=== PATIENT | female | born 1990 | race Caucasian/White ===

== ENCOUNTER 2016-10-22 08:00 | Inpatient (IN) ==
[2016-10-22] MEDS ORDERED: Ondansetron 4 MG/2 ML VIAL IVP PRN (08:18)
[2016-10-22] MEDS ORDERED: Naloxone 0.4 MG/ML INJ IVP PRN (08:18)
[2016-10-22] MEDS ORDERED: Famotidine 20 MG/2 ML VIAL IVP PRN (08:18)
[2016-10-22] MEDS ORDERED: *HR* Nalbuphine 20 MG/ML AMPUL IVP PRN (08:22)
[2016-10-22] MEDS ORDERED: miSOPROStol 25 MCG TABLET VG PRN (08:22)
--- NOTE | 2016-10-22 08:26 | OB/GYN History & Physical ---
Date of Encounter: 10/22/16 Time of Encounter: 08:20 Assessment and Plan (1) and not yet delivered in third trimester Current visit: Yes Status: Acute (2) 39 weeks gestation of Current visit: Yes Status: Acute (3) Elective induction of labor planned Current visit: Yes Status: Acute Will induce patient with Cytotec and a Stratton catheter planus dentist for a vaginal delivery History of Present Illness HPI: Ms. Deleon is a 26 year old female 3 para 2001 at 39-0/7 weeks who presented for induction of labor secondary to with favorable cervix. Patient had non-complicated course has been having occasional contractions but tolerable denies any vaginal bleeding or discharge. Patient is O- and GBS negative rubella positive. Past Med Surg Social Fam HX - Past Medical History Source: patient, old records reviewed Obstetrical History - Pregnancies : 3 Para: 2 Term: 2 : 0 Ab's: 0 Livin Review of System OB All systems PM: reviewed and no additional remarkable complaints except as stated Exam - Constitutional Constitutional: well developed, well nourished, no acute distress, average body habitus - HEENT HEENT: PERRL - Neck Neck exam: full ROM - Lungs Respiratory exam: CTAB - Cardiovascular Cardiovascular exam: RRR - Vagina Vagina: Present: normal moisture - Cervix Dilation: 2 Effacement: 80 Station: -2 - Comments Comments: Stratton catheter placed with 30 mL balloon inflated Results Result Diagrams: 10/22/16 09:07 All other labs normal. - VTE Reasons for not Prescribing Prophylaxis: Treatment not Indicated - Low risk for VTE
[2016-10-22] MEDS ORDERED: Ringers Solution, Lactated 1,000 ML IVC SCH (08:30)
[2016-10-22 09:15] LABS: Hematocrit 33.3 % (35.3-44.9); Hemoglobin 11.3 g/dL (11.5-15.4); Immature Granulocytes % 0.4 % (0-4); Lymphocytes % 18.7 %; Mean Corpuscular HGB Conc 33.9 g/dL (31.6-35.5); Mean Corpuscular Volume 85.6 fL (83.0-100.0); Mean Platelet Volume 10.9 fL (9.4-12.4); Platelet Count 166 K/mcL (140-400); Red Blood Count 3.89 M/mcL (3.82-4.97); Red Cell Distribution Width 13.6 % (11.5-14.5); Segmented Neutrophils % 71.5 %
[2016-10-22 09:16] LABS: Basophils % 0.3 %; Eosinophils # 0.1 K/mcL (0.0-0.6); Eosinophils % 1.6 %; Lymphocytes # 1.3 K/mcL (0.6-4.6); Monocytes # 0.5 K/mcL (0.0-1.3); Monocytes % 7.5 %; Neutrophils # 4.9 K/mcL (1.6-8.9)
--- NOTE | 2016-10-22 12:53 | OB Labor Progress Note ---
Date of Encounter: 10/22/16 Time of Encounter: 12:50 Labor Progress Note - Subjective Subjective: Patient's catheter is out tolerating contractions well at this time. Still not wanting an epidural - Cervix Cervix: 380/-2 AROM clear fluid small amt - Heart Tones Heart Tones: heart tones 140s reactive - [place]: Contractions every 2 minutes - Plan Plan: Anticipate normal spontaneous vaginal delivery
[2016-10-22] MEDS ORDERED: Oxytocin 20 units/ LR 1000 mL 20 UNIT/1,000 ML BAG IVC ONE ×2 (16:05→18:45)
[2016-10-22] MEDS ORDERED: Lidocaine 1% 20 ML MDV ONE (16:07)
--- NOTE | 2016-10-22 17:02 | OB/GYN Procedure Note ---
Delivery - Delivery Date: 10/22/16 Provider: Adilson Vann Intrapartum events: none Delivery induction: woodward, misoprostol Delivery augmentation: rupture of membranes Delivery monitor: external FHT, external uterine Anesthesia: local Estimated Blood Loss: 200 - Infant (s) A Delivery Date: 10/22/16 Delivery Time: 16:35 Presentation: vertex Position: JOSE Route of delivery: Gender: Male Viability: Viable Pounds: 8 Ounces: 11 Weight Gram: 3.93 kg at 1 minute: 8 at 5 mins: 9 Shoulder Dystocia: not encountered Specimens collected: cord blood Placenta: spontaneous Cord: 3 umbilical vessels - Repair Episiotomy: none Laceration Description: Perineal - 1st Degree - Complications Delivery complications: none Delivery comments: Patient is a 26-year-old 3 para 2 at 39-0/7 weeks who presented for induction of labor secondary with favorable cervix. Patient was admitted for catheter and Cytotec was placed in the catheter fell out a couple hours later. Patient was artificially ruptured clear fluid and progressed to complete without any additional augmentation. Patient became complete pushed twice delivering a viable male in left occiput anterior presentation at 1635. There was no nuchal cord, no meconium, infant was bulb suctioned on the abdomen, Apgars were 8 at 1 minute, 9 at 5 minutes, infant weight was 8 lbs. 11 oz. 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 Patient was noted to have a first-degree perineal laceration repaired with 3-0 Vicryl in usual fashion. Cervix vagina was visualized intact. Patient will be observed 2 hours before being taken floor. - Disposition Mom disposition: stable in LDR disposition: stable in LDR
[2016-10-22] MEDS ORDERED: Rho Immune Globulin 1,500 UNIT SYRINGE IM PRN (20:22)
[2016-10-22] MEDS ORDERED: Ibuprofen 600 MG TABLET PO PRN (20:22)
[2016-10-22] MEDS ORDERED: Measles/Mumps/Rubella Vacc 0.5 ML VIAL SQ PRN (20:22)
[2016-10-22] MEDS ORDERED: *HR* HYDROcodone/Acet 5/325 mg TABLET PO PRN (20:22)
[2016-10-22] MEDS ORDERED: Oxytocin 20 units/ LR 1000 mL 20 UNIT/1,000 ML BAG IVC SCH (20:22)
[2016-10-22] MEDS ORDERED: Acetaminophen 325 MG TABLET PO PRN (20:22)
[2016-10-23 05:53] LABS: Basophils % 0.3 %; Eosinophils # 0.1 K/mcL (0.0-0.6); Eosinophils % 0.9 %; Hematocrit 31.6 % (35.3-44.9); Hemoglobin 10.5 g/dL (11.5-15.4); Immature Granulocytes % 0.5 % (0-4); Lymphocytes # 2.4 K/mcL (0.6-4.6); Mean Corpuscular HGB Conc 33.2 g/dL (31.6-35.5); Mean Corpuscular Hemoglobin 29.3 pg (28.0-33.3); Mean Corpuscular Volume 88.3 fL (83.0-100.0); Mean Platelet Volume 10.9 fL (9.4-12.4); Monocytes % 10.1 %; Neutrophils # 6.3 K/mcL (1.6-8.9); Platelet Count 159 K/mcL (140-400); Red Blood Count 3.58 M/mcL (3.82-4.97); Red Cell Distribution Width 13.7 % (11.5-14.5); Segmented Neutrophils % 64.2 %
[2016-10-23] MEDS ORDERED: Lactobacillus 1 EACH CAP.SPRINK PO SCH (09:00)
[2016-10-23] MEDS ORDERED: Prenatal Vit/FA 1 EACH TABLET PO SCH ×2 (09:00)
[2016-10-23] MEDS ORDERED: Famotidine 20 MG TABLET PO SCH (09:00)
[2016-10-23] MEDS ORDERED: Loratadine 10 MG TABLET PO SCH (09:00)
--- NOTE | 2016-10-23 09:29 | Discharge Summary ---
Date of Encounter: 10/23/16 Time of Encounter: 09:20 - Discharge Diagnosis (1) Mother currently breast-feeding Priority: Secondary Status: Acute (2) Vaginal delivery Priority: Primary Status: Acute Comments: Pt meeting all milestones and desires discharge this evening if baby is discharged. - Discharge Medications Prescriptions: Ibuprofen [Motrin] 600 mg PO Q6HR PRN #60 tab PRN Reason: Cramping Docusate [Colace] 100 mg PO BID #60 Home Medications: Acidophilus 100 mg PO DAILY 10/22/16 [History] Zantac 150 mg PO DAILY 10/22/16 [History] Zyrtec 10 mg PO DAILY 10/22/16 [History] Docusate [Colace] 100 mg PO BID #60 10/23/16 [Rx] Ibuprofen [Motrin] 600 mg PO Q6HR PRN #60 tab 10/23/16 [Rx] Vit/FA 1 each PO DAILY tab 10/23/16 [Rx] Allergies/Adverse Reactions: Allergies No Known Allergies Allergy (Verified 10/22/16 09:47) Data Procedures and tests throughout hospitalization: Laboratory Tests 10/22/16 10/22/16 10/23/16 09:07 17:04 05:23 WBC 6.9 9.9 RBC 3.89 3.58 L Hgb 11.3 L 10.5 L Hct 33.3 L 31.6 L MCV 85.6 88.3 MCH 29.0 29.3 MCHC 33.9 33.2 RDW 13.6 13.7 Plt Count 166 159 MPV 10.9 10.9 Immature Gran % 0.4 0.5 Seg Neutrophils % 71.5 64.2 Lymphocytes % 18.7 24.0 Monocytes % 7.5 10.1 Eosinophils % 1.6 0.9 Basophils % 0.3 0.3 Neutrophils # 4.9 6.3 Lymphocytes # 1.3 2.4 Monocytes # 0.5 1.0 Eosinophils # 0.1 0.1 Basophils # 0.0 0.0 Screen NEGATIVE Baby's Blood Type O RH POSITIVE Mother's Blood Type O RH NEGATIVE Rhogam Indicated YES Rhogam Req for Mother 1 Labs on day of discharge: Labs from last 24 hours 10/23/16 10/22/16 10/22/16 05:23 17:04 09:07 WBC 9.9 6.9 RBC 3.58 L 3.89 Hgb 10.5 L 11.3 L Hct 31.6 L 33.3 L MCV 88.3 85.6 MCH 29.3 29.0 MCHC 33.2 33.9 RDW 13.7 13.6 Plt Count 159 166 MPV 10.9 10.9 Immature Gran % 0.5 0.4 Seg Neutrophils % 64.2 71.5 Lymphocytes % 24.0 18.7 Monocytes % 10.1 7.5 Eosinophils % 0.9 1.6 Basophils % 0.3 0.3 Neutrophils # 6.3 4.9 Lymphocytes # 2.4 1.3 Monocytes # 1.0 0.5 Eosinophils # 0.1 0.1 Basophils # 0.0 0.0 Screen NEGATIVE Baby's Blood Type O RH POSITIVE Mother's Blood Type O RH NEGATIVE Rhogam Indicated YES Rhogam Req for Mother 1 Date of admission: 10/22/16 08:05 Primary care physician: Temi Saunders CNP Consults: 10/22/16 20:22 Consult to Lumber Planer [CONS] Routine Comment: Vaginal delivery, consult needed Discharging clinician: Radha Hollingsworth Anticipated date of discharge: 10/23/16 - Patient Status Disposition: Home, Self-Care Condition: Good Functional capacity at discharge: independent ambulation Overall status at discharge: patient is progressing back to baseline - Discharge Instructions Follow Up With: Temi Saunders CNP [Primary Care Provider] - Adilson Vann DO [Partnered Physician] - - Diet and Activity Activity: increase activity as tolerated Diet: regular diet Hospital Course Reason for admission: induction of labor Delivery: Episiotomy: none Laceration: 1st degree Other procedures: none complications: none Discharge diagnosis: IUP at term delivered [place] baby: male Hospital course: - Delivery Date: 10/22/16 Provider: Adilson Vann Intrapartum events: none Delivery induction: woodward, misoprostol Delivery augmentation: rupture of membranes Delivery monitor: external FHT, external uterine Anesthesia: local Estimated Blood Loss: 200 - Infant (s) Infant A Infant Delivery Date: 10/22/16 Delivery Time: 16:35 Presentation: vertex Position: JOSE Route of delivery: Gender: Male Viability: Viable Pounds: 8 Ounces: 11 Weight Gram: 3.93 kg at 1 minute: 8 at 5 mins: 9 Shoulder Dystocia: not encountered Specimens collected: cord blood Placenta: spontaneous Cord: 3 umbilical vessels - Repair Episiotomy: none Laceration Description: Perineal - 1st Degree - Complications Delivery complications: none - Disposition Mom disposition: home PPD#1 disposition: home with mother, Time Attestation: Total time spent providing and/or coordinating discharge services: Time Spent: Less than 30 minutes Exam - Constitutional Vitals: Temp Pulse Resp BP Pulse Ox 97.8 F 81 16 132/90 99 10/23/16 08:00 10/23/16 08:00 10/23/16 08:00 10/23/16 08:00 10/23/16 08:00 General appearance IM: A&O X 3 - Respiratory Respiratory exam: Present: CTAB - Cardiovascular Cardiovascular exam IM: Present: RRR - Rectal Rectal exam: deferred - Uterine Tone: Firm Uterus Position: At Umbilicus - Extremities Exam Extremities exam IM: Present: normal inspection - Neurological Exam Neurological exam: normal gait, oriented X3 - Psychiatric Additional comments: reports good mood
[2016-10-23 17:28] VITALS: BP 130/80
== END 2016-10-23 17:49 | disposition home or self-care (01) | DRG 560 ==
LOC: 1NENULAB 08:05 → 1NENUOBS 20:08
PROVIDERS: ADMIT Obstetrics & Gynecology; ATTEND Obstetrics & Gynecology

== ENCOUNTER 2018-06-13 05:59 | Inpatient (IN) ==
[2018-06-13] MEDS ORDERED: Ringers Solution, Lactated 1,000 ML ONE (06:15)
[2018-06-13] MEDS ORDERED: Metoclopramide 10 MG/2 ML VIAL IVP PRN (06:16)
[2018-06-13] MEDS ORDERED: Naloxone 0.4 MG/ML INJ IVP PRN (06:16)
[2018-06-13] MEDS ORDERED: Famotidine 20 MG/2 ML VIAL IVP PRN (06:16)
[2018-06-13] MEDS ORDERED: miSOPROStol 25 MCG TABLET VG PRN (06:16)
[2018-06-13] MEDS ORDERED: Lidocaine 1% 20 ML MDV INFILT PRN (06:16)
[2018-06-13] MEDS ORDERED: Ondansetron 4 MG/2 ML VIAL IVP PRN (06:16)
[2018-06-13] MEDS ORDERED: *HR* Nalbuphine 10 MG/ML AMPUL IVP PRN (06:16)
[2018-06-13] MEDS ORDERED: Ringers Solution, Lactated 1,000 ML IVC SCH (06:30)
--- NOTE | 2018-06-13 07:25 | OB/GYN History & Physical ---
Date of Encounter: 06/13/18 Time of Encounter: 07:21 Assessment and Plan (1) 37 weeks gestation of Current visit: Yes Status: Acute (2) Chronic hypertension affecting Current visit: Yes Status: Acute Admit for IOL due to chronic HTN with new onset proteinuria and increasing blood pressures. Plan for cytotec and woodward for IOL. (3) Rh negative state in antepartum period Current visit: Yes Status: Acute History of Present Illness Chief complaint: induction of labor, chronic HTN HPI: Ms. Deleon is a 28 year old female presenting at 37 weeks gestation for IOL due to chronic HTN with new onset proteinuria. She takes labetalol 100mg BID. SHe denies any complaints today. Good FM. O negative Rubella immune Varicella immune Treponema, HIV, Hep B negative GBS negative Past Med Surg Social Fam HX - Past Medical History Medical history: no medical history Psychiatric history: no psych history - Past Surgical History Surgical History: other Additional surgical history: T&A D&C breast reduction - Social History Smoking Status: Never smoker Smokeless Tobacco Status: No Alcohol use: none Drug use: none - Family History Father Adopted: No Family Member Ethnicity: Non- Living Status: Still Living Hx Family Cardiac Disorders: Yes Hx Family Respiratory Disorders: No Hx Family Cancer: No Hx Family GI Disorders: No Hx Family Genitourinary Disorders: No Hx Family Endocrine Disorder: No Hx Family Musculoskeletal Disorders: No Hx Family Neuromuscular Disorders: No Hx Family Neurologic Disorders: No Hx Family HEENT Disorders: No Hx Family Autoimmune Disorders: No Hx Family Reproductive Disorders: No Hx Family Psychosocial Disorders: No Hx Family Medical Disorders: No Obstetrical History - Pregnancies : 5 Para: 3 Term: 3 : 0 Ab's: 1 Livin Medications and Allergies Acidophilus 100 mg PO DAILY 10/22/16 [History] Zyrtec 10 mg PO DAILY 10/22/16 [History] Bentyl 1 / PO DAILY 04/09/17 [History] Doxycycline 100 mg PO BID #14 capsule 04/09/17 [Rx] Ferrous Sulfate 325 / PO DAILY 04/09/17 [History] Ferrous Sulfate 325 mg PO DAILY #30 tablet. 04/09/17 [Rx] Ibuprofen [Motrin] 800 mg PO Q8HR PRN #30 tablet 04/09/17 [Rx] Methylergonovine [Methergine] 0.2 mg PO Q8HR PRN #9 tablet 04/09/17 [Rx] Tablet 1 / PO DAILY 04/09/17 [History] Vit/FA 1 each PO DAILY 04/09/17 [History] Allergy/AdvReac Type Severity Reaction Status Date / Time No Known Allergies Allergy Verified 04/08/17 06:28 Review of System OB All systems PM: reviewed and no additional remarkable complaints except as stated Exam - Constitutional Constitutional: well developed, well nourished, no acute distress - HEENT HEENT: Mucus Membranes Moist - Lungs Respiratory exam: CTAB - Cardiovascular Cardiovascular exam: RRR, +S1, +S2 - Abdomen Abdomen: Present: gravid, non tender - Extremities Extremities exam: normal inspection - Cervix Dilation: 2 (in office) Effacement: 80 Station: -2 - Anus/Rectum Anus/Rectum: Present: normal perianal skin Results All other labs normal. - VTE Reasons for not Prescribing Prophylaxis: Treatment not Indicated - Low risk for VTE
--- NOTE | 2018-06-13 07:55 | OB Labor Progress Note ---
Date of Encounter: 06/13/18 Time of Encounter: 07:53 Labor Progress Note - Subjective Subjective: Patient still doing well feeling occasional contractions is denying headaches blurred vision scotoma. - Cervix Cervix: 2-3/80/-2 Stratton catheter placed with 40cc balloon inflated - Heart Tones Heart Tones: heart tones 140s reactive - [place]: Contractions every 5-7 minutes irregular - Interventions Interventions: Patient will be given Cytotec 25 g vaginally, PIH labs have been obtained, we will anticipate normal spontaneous vaginal delivery
[2018-06-13 08:19] LABS: Amphetamine Screen,Urine Negative ng/mL (Cutoff=1000); Barbiturate Screen,Urine Negative ng/mL (Cutoff=200); Benzodiazepines Screen,Urine Negative ng/mL (Cutoff=200); Cannabinoid Screen,Urine Negative ng/mL (Cutoff = 50); Cocaine Screen,Urine Negative ng/mL (Cutoff= 300); Opiate Screen,Urine Negative ng/mL (Cutoff=300); Phencyclidine Screen,Urine Negative ng/mL (Cutoff=25)
[2018-06-13 08:31] LABS: Basophils % 0.3 %; Eosinophils # 0.1 K/mcL (0.0-0.6); Eosinophils % 1.2 %; Hematocrit 30.6 % (35.3-44.9); Hemoglobin 9.9 g/dL (11.5-15.4); Immature Granulocytes % 0.6 % (0-4); Lymphocytes # 1.8 K/mcL (0.6-4.6); Lymphocytes % 26.7 %; Mean Corpuscular HGB Conc 32.4 g/dL (31.6-35.5); Mean Corpuscular Hemoglobin 27.3 pg (28.0-33.3); Mean Corpuscular Volume 84.3 fL (83.0-100.0); Mean Platelet Volume 11.1 fL (9.4-12.4); Monocytes # 0.6 K/mcL (0.0-1.3); Monocytes % 8.5 %; Neutrophils # 4.2 K/mcL (1.6-8.9); Platelet Count 153 K/mcL (140-400); Red Blood Count 3.63 M/mcL (3.82-4.97); Segmented Neutrophils % 62.7 %
[2018-06-13 08:33] LABS: Alanine Aminotransferase 15 Units/L (7-52); Aspartate Amino Transferase 20 Units/L (13-39); BUN/Creatinine Ratio 10 (6-26); Blood Urea Nitrogen 6 mg/dL (6-20); Lactate Dehydrogenase 133 Units/L (140-271); Uric Acid 6.1 mg/dL (2.3-7.6); eGFR For Non-African Americans > 60 (> 60)
[2018-06-13 08:33] LABS: Protein/Creatinine Ratio,Urine 0.13 mg/mg (0.00-0.20)
--- NOTE | 2018-06-13 12:51 | OB Labor Progress Note ---
Date of Encounter: 06/13/18 Time of Encounter: 12:48 Labor Progress Note - Subjective Subjective: Patient is doing well feeling contractions with a not that uncomfortable at this point. - Cervix Cervix: 5-6/80/-2 AROM clear fluid - Heart Tones Heart Tones: heart tones 140s reactive - [place]: IUPC placed contractions every 2-5 minutes irregular this time. - Interventions Interventions: Continue current care anticipate vaginal delivery
[2018-06-13] MEDS ORDERED: Oxytocin 20 units/ LR 1000 mL 20 UNIT/1,000 ML BAG IVC ONE (13:02)
--- NOTE | 2018-06-13 16:13 | OB/GYN Procedure Note ---
Delivery - Delivery Date: 06/13/18 Provider: Adilson Vann Intrapartum events: none Delivery induction: AROM, woodward, misoprostol Delivery monitor: external FHT, external uterine, internal uterine Anesthesia: none Quantitated Blood Loss: 200 - Infant (s) Infant A Infant Delivery Date: 06/13/18 Infant Delivery Time: 15:23 Presentation: vertex Position: JOSE Gender: Male Viability: Viable Pounds: 8 Ounces: 5 Weight Gram: 3.76 kg at 1 minute: 7 at 5 mins: 8 Shoulder Dystocia: not encountered Specimens collected: cord blood Placenta: spontaneous Cord: nuchal cord (around the body times one), true knot - Repair Episiotomy: none Laceration Description: None - Complications Delivery complications: none - Disposition Mom disposition: stable in LDR [place] disposition: stable in LDR - Comments Comments: Patient is a 28-year-old 5 para 3013 at 37-0/7 weeks who presented for an induction of labor secondary to chronic hypertension on labetalol. Patient has been stable however the last visit her pressures have been elevated and she started becoming symptomatic she is complaining of just not feeling right with occasional headaches and scotomata. Because of patient's worsening CHAPLAIN RESIDENT symptoms was recommended when she had 37 weeks we will go ahead and deliver her she did have a favorable cervix patient was brought to labor and delivery where a Woodward catheter placed along with Cytotec. Woodward catheter fell out approximately 2 hours after insertion approximately 4 hours after the placement of the Cytotec she was checked was noted to be 5-6 cm and she was artificially ruptured. Patient progressed rapidly from this point became anterior lip did not have an epidural wanted to push. Anterior lip was then reduced and patient continued to push and delivered a viable female infant in left occiput anterior presentation at 1523. There was a nuchal cord 1 around the body with a true knot noted in the cord. was bulb suctioned on the abdomen Apgars were 7 at 8 at 5 minutes infant weight was 8 lbs. 5 oz. 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 Perineum cervix and vagina was well visualized intact. Patient will be observed 2 hours before being taken to the floor. All needles and sponge counts were correct 3
[2018-06-13] MEDS ORDERED: Oxytocin 20 units/ LR 1000 mL 20 UNIT/1,000 ML BAG IVC SCH (16:55)
[2018-06-13] MEDS ORDERED: Acetaminophen 325 MG TABLET PO PRN (16:55)
[2018-06-13] MEDS ORDERED: Rho Immune Globulin 1,500 UNIT SYRINGE IM PRN (16:55)
[2018-06-13] MEDS ORDERED: Lanolin 7 G OINT...G. TP PRN (16:55)
[2018-06-13] MEDS: Ibuprofen 600 MG TABLET PO PRN (17:16)
[2018-06-14] MEDS: Ibuprofen 600 MG TABLET PO PRN ×2 (03:51→09:36)
[2018-06-14 08:03] LABS: Basophils % 0.5 %; Eosinophils # 0.1 K/mcL (0.0-0.6); Eosinophils % 1.5 %; Hematocrit 29.6 % (35.3-44.9); Hemoglobin 9.4 g/dL (11.5-15.4); Immature Granulocytes % 0.6 % (0-4); Lymphocytes # 2.3 K/mcL (0.6-4.6); Lymphocytes % 26.6 %; Mean Corpuscular HGB Conc 31.8 g/dL (31.6-35.5); Mean Corpuscular Hemoglobin 27.3 pg (28.0-33.3); Mean Platelet Volume 10.6 fL (9.4-12.4); Monocytes # 0.8 K/mcL (0.0-1.3); Monocytes % 8.9 %; Neutrophils # 5.5 K/mcL (1.6-8.9); Platelet Count 149 K/mcL (140-400); Red Blood Count 3.44 M/mcL (3.82-4.97); Red Cell Distribution Width 14.8 % (11.5-14.5); Segmented Neutrophils % 61.9 %
[2018-06-14 08:05] VITALS: BP 126/83
[2018-06-14] MEDS ORDERED: Prenatal Vit/FA 1 EACH TABLET PO SCH (09:00)
--- NOTE | 2018-06-14 11:58 | Discharge Summary ---
Date of Encounter: 06/14/18 Time of Encounter: 11:57 - Discharge Diagnosis (1) Chronic hypertension affecting Priority: Primary Status: Acute Comments: Will discharge home on labatelol (2) Vaginal delivery Priority: Primary Status: Acute Comments: Stable in PP, meeting all milestones, pain well managed, desires discharge - Discharge Medications Prescriptions: New Ibuprofen [Motrin] 600 mg PO Q6HR PRN #60 tablet PRN Reason: Cramping Docusate [Colace] 100 mg PO BID #30 capsule Lanolin [Lansinoh] 1 appl TP TID PRN oint...g. PRN Reason: Sore Nipples Continue Vit/FA 1 each PO DAILY Cetirizine HCl [All Day Allergy] 1 tab PO HS Omeprazole [PriLOSEC] 1 tab PO DAILY Dicyclomine [Bentyl] 1 tab PO Q6HR PRN PRN Reason: IBS Labetalol [Trandate] 1 tab PO BID #60 tablet Home Medications: Vit/FA 1 each PO DAILY 04/09/17 [History] Cetirizine HCl [All Day Allergy] 1 tab PO HS 06/13/18 [History] Dicyclomine [Bentyl] 1 tab PO Q6HR PRN 06/13/18 [History] Omeprazole [PriLOSEC] 1 tab PO DAILY 06/13/18 [History] Docusate [Colace] 100 mg PO BID #30 capsule 06/14/18 [Rx] Ibuprofen [Motrin] 600 mg PO Q6HR PRN #60 tablet 06/14/18 [Rx] Labetalol [Trandate] 1 tab PO BID #60 tablet 06/14/18 [Rx] Lanolin [Lansinoh] 1 appl TP TID PRN oint...g. 06/14/18 [Rx] Allergies/Adverse Reactions: Allergy/AdvReac Type Severity Reaction Status Date / Time No Known Allergies Allergy Verified 06/13/18 10:52 Data Procedures and tests throughout hospitalization: Laboratory Tests 06/13/18 06/13/18 06/13/18 07:48 07:48 07:48 WBC 6.7 RBC 3.63 L Hgb 9.9 L Hct 30.6 L MCV 84.3 MCH 27.3 L MCHC 32.4 RDW 15.0 H Plt Count 153 MPV 11.1 Immature Gran % 0.6 Seg Neutrophils % 62.7 Lymphocytes % 26.7 Monocytes % 8.5 Eosinophils % 1.2 Basophils % 0.3 Neutrophils # 4.2 Lymphocytes # 1.8 Monocytes # 0.6 Eosinophils # 0.1 Basophils # 0.0 BUN 6 Creatinine 0.59 L Est GFR ( Amer) > 60 Est GFR (Non-Af Amer) > 60 BUN/Creatinine Ratio 10 Uric Acid 6.1 AST 20 ALT 15 Lactate Dehydrogenase 133 L Urine Creatinine Protein/Creatinin Ratio Urine Total Protein Urine Opiates Screen Negative Ur Barbiturates Screen Negative Ur Phencyclidine Scrn Negative Ur Amphetamines Screen Negative U Benzodiazepines Scrn Negative Urine Cocaine Screen Negative U Marijuana (THC) Screen Negative Ur Drug Screen Interp See Below Baby's Blood Type Mother's Blood Type Rhogam Indicated 06/13/18 06/13/18 06/14/18 07:54 15:51 07:41 WBC 8.8 RBC 3.44 L Hgb 9.4 L Hct 29.6 L MCV 86.0 MCH 27.3 L MCHC 31.8 RDW 14.8 H Plt Count 149 MPV 10.6 Immature Gran % 0.6 Seg Neutrophils % 61.9 Lymphocytes % 26.6 Monocytes % 8.9 Eosinophils % 1.5 Basophils % 0.5 Neutrophils # 5.5 Lymphocytes # 2.3 Monocytes # 0.8 Eosinophils # 0.1 Basophils # 0.0 BUN Creatinine Est GFR ( Amer) Est GFR (Non-Af Amer) BUN/Creatinine Ratio Uric Acid AST ALT Lactate Dehydrogenase Urine Creatinine 164 Protein/Creatinin Ratio 0.13 Urine Total Protein 21 H Urine Opiates Screen Ur Barbiturates Screen Ur Phencyclidine Scrn Ur Amphetamines Screen U Benzodiazepines Scrn Urine Cocaine Screen U Marijuana (THC) Screen Ur Drug Screen Interp Baby's Blood Type O RH NEGATIVE Mother's Blood Type O RH NEGATIVE Rhogam Indicated NO Labs on day of discharge: Labs from last 24 hours 06/14/18 06/13/18 07:41 15:51 WBC 8.8 RBC 3.44 L Hgb 9.4 L Hct 29.6 L MCV 86.0 MCH 27.3 L MCHC 31.8 RDW 14.8 H Plt Count 149 MPV 10.6 Immature Gran % 0.6 Seg Neutrophils % 61.9 Lymphocytes % 26.6 Monocytes % 8.9 Eosinophils % 1.5 Basophils % 0.5 Neutrophils # 5.5 Lymphocytes # 2.3 Monocytes # 0.8 Eosinophils # 0.1 Basophils # 0.0 Baby's Blood Type O RH NEGATIVE Mother's Blood Type O RH NEGATIVE Rhogam Indicated NO Date of admission: 06/13/18 05:59 Primary care physician: Kierra Lind Consults: 06/13/18 16:55 Consult to Sorting Cows Worker [CONS] Routine Comment: Vaginal delivery, consult needed Discharging clinician: Sameera Serna Anticipated date of discharge: 06/14/18 - Patient Status Disposition: Home, Self-Care Condition: Good Functional capacity at discharge: independent ambulation Overall status at discharge: patient is progressing back to baseline - Discharge Instructions Follow Up With: Kierra Lind, MANNY [Primary Care Provider] - Adilson Vann DO [Partnered Physician] - - Diet and Activity Activity: resume usual activities as tolerated Diet: regular diet Hospital Course Reason for admission: induction of labor, IUP at term Delivery: Episiotomy: none Other procedures: none complications: none Discharge diagnosis: IUP at term delivered Hospital course: Delivery - Delivery Date: 06/13/18 Provider: Adilson Vann Intrapartum events: none Delivery induction: AROM, woodward, misoprostol Delivery monitor: external FHT, external uterine, internal uterine Anesthesia: none Quantitated Blood Loss: 200 - (s) A Infant Delivery Date: 06/13/18 Infant Delivery Time: 15:23 Presentation: vertex Position: JOSE Gender: Male Viability: Viable Pounds: 8 Ounces: 5 Weight Gram: 3.76 kg at 1 minute: 7 at 5 mins: 8 Shoulder Dystocia: not encountered Specimens collected: cord blood Placenta: spontaneous Cord: nuchal cord (around the body times one), true knot - Repair Episiotomy: none Laceration Description: None - Complications Delivery complications: none - Disposition Mom disposition: stable in PP and appropriate for discharge Time Attestation: Total time spent providing and/or coordinating discharge services: Time Spent: Less than 30 minutes Exam - Constitutional Vitals: Temp Pulse Resp BP Pulse Ox 97.3 F L 83 16 126/83 99 06/14/18 08:03 06/14/18 08:03 06/14/18 10:13 06/14/18 08:03 06/14/18 08:03 General appearance IM: A&O X 3 - Respiratory Respiratory exam: Present: CTAB - Cardiovascular Cardiovascular exam IM: Present: RRR - GI/Abdominal GI/Abdominal exam IM: soft - Uterine Tone: Firm Uterus Position: 1 Finger Above Umbilicus - Extremities Exam Extremities exam IM: Present: normal capillary refill, normal inspection - Neurological Exam Neurological exam: normal gait, oriented X3 - Psychiatric Additional comments: reports good mood
== END 2018-06-14 13:29 | disposition home or self-care (01) | DRG 807 ==
LOC: 1NENULAB 05:59 → 1NENUOBS 17:43
PROVIDERS: ADMIT Obstetrics & Gynecology; ATTEND Obstetrics & Gynecology